=== PATIENT | female | born 1945 | race Caucasian/White ===

== ENCOUNTER 2020-12-29 14:34 | Emergency (ER) | payer MEDICARE, BC ==
[~2020-12-29] VITALS: Ht 170.2 cm; Wt 97.1 kg
--- NOTE | 2020-12-29 14:45 | NUR ---
PATIENT HERE FOR EPISODE OF ROLLED OUT OF PHYSICAL THERAPY BED AFTER FEELLING DIZZY OBTAINED BUMP ON THE TOP OF HEAD. PATIENT ALERT AND ORIENTED X4. AWAITING MD EASTON.
[2020-12-29] MEDS ORDERED: ACETAMINOPHEN ES 500 MG TABLET PO ONE (15:00)
[2020-12-29] MEDS ORDERED: MECLIZINE HCL 12.5 MG TABLET PO ONE ×2 (15:00→17:30)
[2020-12-29] MEDS ORDERED: MECLIZINE HCL 25 MG TABLET ONE ×2 (15:08→17:13)
[2020-12-29] MEDS ORDERED: ACETAMINOPHEN ES 500 MG TABLET ONE (15:09)
--- NOTE | 2020-12-29 15:20 | NUR ---
out to radiology
[2020-12-29 16:07] LABS: BASOPHILS % (AUTO) 0.5 % (0.0-2.0); EOSINOPHILS % (AUTO) 1.4 % (0.0-6.0); HEMATOCRIT 41 % (33-45); HEMOGLOBIN 13.6 g/dL (11.5-14.8); LYMPHOCYTES # (AUTO) 1.7 K/uL (0.8-4.8); LYMPHOCYTES % (AUTO) 19.1 % (20.0-44.0); MEAN CORPUSCULAR HGB CONC 33 g/dl (31.0-36.0); MEAN CORPUSCULAR VOLUME 93 fL (82-100); MONOCYTES # (AUTO) 0.8 K/uL (0.1-1.30); MONOCYTES % (AUTO) 8.9 % (2.0-12.0); NEUTROPHILS # (AUTO) 6.2 K/uL (1.8-8.9); NEUTROPHILS % (AUTO) 70.1 % (43.0-81.0); PLATELET COUNT (AUTO) 260 K/uL (150-450); RED BLOOD CELL COUNT(AUTO) 4.43 MIL/uL (4.0-5.2); WHITE BLOOD COUNT (AUTO) 8.8 K/uL (4.3-11.0)
--- NOTE | 2020-12-29 16:44 | NUR ---
[facility] [phone].
[2020-12-29 16:56] LABS: ALANINE AMINOTRANSFERASE 41 U/L (12-78); ALBUMIN 3.8 g/dL (3.4-5.0); ALKALINE PHOSPHATASE 75 U/L (46-116); ASPARTATE AMINOTRANSFERASE 29 U/L (15-37); BILIRUBIN,DIRECT 0.1 mg/dL (0.0-0.2); BILIRUBIN,TOTAL 0.4 mg/dL (0.2-1.0); CALCIUM, SERUM 9.3 mg/dL (8.5-10.1); CARBON DIOXIDE 25 mmol/L (21-32); CHLORIDE 107 mmol/L (98-107); CREATININE 0.9 mg/dL (0.6-1.3); GLUCOSE 125 mg/dL (74-106); POTASSIUM 3.8 mmol/L (3.5-5.1); SODIUM SERUM 143 mmol/L (136-145); TOTAL PROTEIN, SERUM 7.4 g/dL (6.4-8.2); UREA NITROGEN, BLOOD 18 mg/dL (7-18)
[2020-12-29] MEDS ORDERED: MECL-159 PO (17:08)
[2020-12-29 17:29] VITALS: BP 142/72
--- NOTE | 2020-12-29 17:30 | NUR ---
Patient discharged to home in stable condition. Written and verbal after care instructions given. Patient verbalizes understanding of instruction.
== END 2020-12-29 17:33 | disposition home or self-care (01) ==
LOC: ER 14:36
DX: S00.03XA Contusion of scalp, initial encounter (principal); R42 Dizziness and giddiness; I10 Essential (primary) hypertension; E66.01 Morbid (severe) obesity due to excess calories; Z68.33 Body mass index [BMI] 33.0-33.9, adult; Z86.73 Personal history of transient ischemic attack (TIA), and cerebral infarction without residual deficits; W06.XXXA Fall from bed, initial encounter; Y93.89 Activity, other specified; Y92.89 Other specified places as the place of occurrence of the external cause; Y99.8 Other external cause status
CPT/HCPCS: 36415; 70450; 71045; 80048; 80076; 82962; 84484; 85025; 85730; 93005; 99285; J8597 ×2

== ENCOUNTER 2023-10-03 19:16 | Emergency (ER) | payer MEDICARE, BC ==
[~2023-10-03] VITALS: Ht 162.6 cm; Wt 99.8 kg
[~2023-10-03 19:16] MED LIST: MECL-159 PO
[2023-10-03] MEDS: ACETAMINOPHEN ES 500 MG TABLET PO ONE (19:58)
[2023-10-03] MEDS ORDERED: ACETAMINOPHEN ES 500 MG TABLET ONE (19:58)
[2023-10-03] MEDS ORDERED: LIDOCAINE 5% (PATCH) 1 EA PATCH TP ONE (20:58)
[2023-10-03] MEDS ORDERED: IBUP-1955 PO (21:04)
[2023-10-03] MEDS ORDERED: ACET-2605 PO (21:04)
[2023-10-03] MEDS: LIDOCAINE 5% (PATCH) 1 EA PATCH TP ONE (21:04)
[2023-10-03 21:30] VITALS: BP 145/81; TEMP 98.5; O2SAT 98
== END 2023-10-03 21:30 | disposition home or self-care (01) ==
LOC: ER 19:21
DX: R07.81 Pleurodynia (principal); I10 Essential (primary) hypertension; Z88.8 Allergy status to other drugs, medicaments and biological substances; W18.30XA Fall on same level, unspecified, initial encounter; Y93.89 Activity, other specified; Y92.89 Other specified places as the place of occurrence of the external cause; Y99.8 Other external cause status
CPT/HCPCS: 71100-TC

== ENCOUNTER 2023-11-24 22:22 | Emergency (ER) | payer MEDICARE, BC ==
[~2023-11-24] VITALS: Ht 172.7 cm; Wt 113.4 kg
[~2023-11-24 22:22] MED LIST changes: +ACET-2605 PO; +IBUP-1955 PO
[2023-11-25 01:05] VITALS: BP 121/72; TEMP 98.2; O2SAT 99
== END 2023-11-25 01:06 | disposition home or self-care (01) ==
LOC: ER 22:25
DX: S01.01XA Laceration without foreign body of scalp, initial encounter (principal); I10 Essential (primary) hypertension; Z86.79 Personal history of other diseases of the circulatory system; Z88.8 Allergy status to other drugs, medicaments and biological substances; W01.198A Fall on same level from slipping, tripping and stumbling with subsequent striking against other object, initial encounter; Y93.89 Activity, other specified; Y92.89 Other specified places as the place of occurrence of the external cause; Y99.8 Other external cause status
CPT/HCPCS: 70450-TC; 72125-TC

== ENCOUNTER 2025-01-16 13:07 | Emergency (ER) | payer MEDICARE, BC ==
[~2025-01-16] VITALS: Ht 167.6 cm; Wt 88.5 kg
[2025-01-16 13:51] LABS: PLATELET COUNT (AUTO) 314 K/uL (150-450); RED BLOOD CELL COUNT(AUTO) 4.61 MIL/uL (4.0-5.2); RED CELL DISTRIBUTION WIDTH 14.0 % (11.5-15.0); WHITE BLOOD COUNT (AUTO) 7.9 K/uL (4.3-11.0)
[2025-01-16 13:56] LABS: CALCIUM, SERUM 9.5 mg/dL (8.5-10.1); CREATININE 1.2 mg/dL (0.6-1.3); SODIUM SERUM 137.0 mmol/L (136-145); UREA NITROGEN, BLOOD 24.0 mg/dL (7-18)
[2025-01-16] MEDS ORDERED: LIDOCAINE 1%-EPI 1:100,000 20 ML VIAL ONE (14:12)
[2025-01-16] MEDS ORDERED: dexaMETHasone SOD PHOSPHATE 1 ML ONE (14:14)
[2025-01-16] MEDS: dexaMETHasone SOD PHOSPHATE 10 MG/ML VIAL IV ONE (14:22)
[2025-01-16] MEDS ORDERED: IOHEXOL-350 100 ML VIAL IV ONE (14:33)
[2025-01-16] MEDS ORDERED: IV NS 0.9% 250 ML IV ONE (14:33)
[2025-01-16 17:26] VITALS: BP 160/87; TEMP 98.5; O2SAT 98
== END 2025-01-16 17:27 | disposition home or self-care (01) ==
LOC: ER 13:07
DX: S11.81XA Laceration without foreign body of other specified part of neck, initial encounter (principal); E78.5 Hyperlipidemia, unspecified; I10 Essential (primary) hypertension; K21.9 Gastro-esophageal reflux disease without esophagitis; Z88.1 Allergy status to other antibiotic agents; Z91.013 Allergy to seafood; Z87.39 Personal history of other diseases of the musculoskeletal system and connective tissue; Z86.79 Personal history of other diseases of the circulatory system; W18.39XA Other fall on same level, initial encounter; Y93.89 Activity, other specified; Y92.090 Kitchen in other non-institutional residence as the place of occurrence of the external cause; Y99.8 Other external cause status
CPT/HCPCS: 12002; 36415; 70450; 70498; 80048; 85025; 96374; 99285; A6403; J1100; J3490; J7050; Q0163; Q9967

== ENCOUNTER 2025-01-17 05:56 | Emergency (ER) | payer MEDICARE, BC ==
[~2025-01-17] VITALS: Ht 167.6 cm; Wt 88.5 kg
[2025-01-17] MEDS ORDERED: GELATIN SPONGE,ABSORBABLE 1 EA SPONGE TP ONE (06:23)
[2025-01-17] MEDS: BACI/NEOM/POLY B OINT PKT 1 UDPKT PACKET TP ONE (06:33)
[2025-01-17] MEDS ORDERED: BENZOIN COMPOUND TINCT 60 ML BOTTLE ONE (06:33)
[2025-01-17 06:57] VITALS: BP 135/81; TEMP 98; O2SAT 96
== END 2025-01-17 06:58 | disposition home or self-care (01) ==
LOC: ER 06:00
DX: S11.81XD Laceration without foreign body of other specified part of neck, subsequent encounter (principal); K21.9 Gastro-esophageal reflux disease without esophagitis; I10 Essential (primary) hypertension; Z48.00 Encounter for change or removal of nonsurgical wound dressing; Z88.1 Allergy status to other antibiotic agents; Z91.013 Allergy to seafood; Z86.79 Personal history of other diseases of the circulatory system; Z87.39 Personal history of other diseases of the musculoskeletal system and connective tissue; X58.XXXD Exposure to other specified factors, subsequent encounter

== ENCOUNTER 2025-01-20 14:27 | Emergency (ER) | payer MEDICARE, BC ==
[~2025-01-20] VITALS: Ht 167.6 cm; Wt 86.2 kg
[2025-01-20 14:32] VITALS: BP 127/87; TEMP 97.9
[2025-01-20] MEDS: BACITRACIN ZINC OINT PACKET 1 EA PACKET TP ONE (15:02)
[2025-01-20 15:03] VITALS: O2SAT 97
== END 2025-01-20 15:04 | disposition home or self-care (01) ==
LOC: ER 14:30
DX: S11.91XD Laceration without foreign body of unspecified part of neck, subsequent encounter (principal); I11.9 Hypertensive heart disease without heart failure; Z48.02 Encounter for removal of sutures; Z88.1 Allergy status to other antibiotic agents; Z91.013 Allergy to seafood; X58.XXXD Exposure to other specified factors, subsequent encounter

== ENCOUNTER 2025-01-23 12:26 | Emergency (ER) | payer MEDICARE, BC ==
[~2025-01-23] VITALS: Ht 167.6 cm; Wt 90.7 kg
[2025-01-23 12:35] VITALS: BP 106/73; TEMP 98.1
[2025-01-23] MEDS ORDERED: CEPH500T PO (13:11)
[2025-01-23] MEDS ORDERED: CEPHALEXIN MONOHYDRATE 500 MG CAPSULE PO ONE (13:35)
[2025-01-23 13:41] VITALS: O2SAT 97
[2025-01-23] MEDS: CEPHALEXIN MONOHYDRATE 500 MG CAPSULE PO ONE (13:41)
== END 2025-01-23 13:42 | disposition home or self-care (01) ==
LOC: ER 12:26
DX: S11.81XD Laceration without foreign body of other specified part of neck, subsequent encounter (principal); K21.9 Gastro-esophageal reflux disease without esophagitis; I10 Essential (primary) hypertension; Z48.02 Encounter for removal of sutures; Z88.1 Allergy status to other antibiotic agents; Z91.013 Allergy to seafood; Z86.79 Personal history of other diseases of the circulatory system; Z87.39 Personal history of other diseases of the musculoskeletal system and connective tissue; X58.XXXD Exposure to other specified factors, subsequent encounter